=== PATIENT | female | born 1960 | race Caucasian/White ===

== ENCOUNTER 2018-03-14 20:22 | Emergency (ER) | payer OTHER ==
[~2018-03-14] VITALS: Ht 154.9 cm; Wt 63.8 kg
[~2018-03-14 20:22] MED LIST: ATOR-22 PO; OMEP40CA PO; RXC5 PO
[2018-03-14 20:24] VITALS: TEMP 36.6; Ht 154.9 cm; Wt 63.8 kg
[2018-03-14] MEDS ORDERED: DIAZEPAM 5MG TAB PO STA (21:00)
[2018-03-14] MEDS ORDERED: KETOROLAC TROMETHAMINE 60 MG/2 ML VIAL IM STA (21:00)
--- NOTE | 2018-03-14 21:55 | EMERGENCY ROOM VISIT NOTE ---
ED Visit Note First contact with patient: 20:51 CHIEF COMPLAINT: Low back pain HISTORY OF PRESENT ILLNESS: This 57-year-old female patient presents to the emergency department by private vehicle with her daughter complaining of pain in the low back which began approximately 6 hours ago. Patient states that she was doing some housework and turned to do something and felt a twinge in her lower back, states "it felt like I tweaked something." The pain has gradually become worse and is now constant, worse with movement and bending at the waist. The patient notes the pain as aching and a 8/10. The patient has taken Tylenol with codeine with minimal relief of the pain. The patient denies any loss of control of their bowel or bladder functions. There has been no leg numbness or weakness, and no change in sensation. No nausea or vomiting or abdominal pain. No chest pain or shortness of breath. The patient has had prior surgery about a year ago, reports that she had a cage at L3-L5 by Dr. Pina 1 year ago. She denies any chronic back issues since her surgery. She denies any falls or direct trauma to the back. No dysuria or increased urinary frequency. REVIEW OF SYSTEMS: A complete 10 point review of systems was reviewed with the patient with pertinent positives and negatives as per history of present illness. All else were negative. ALLERGIES: Reviewed in chart, see below. MEDICATIONS: Reviewed in chart, see below. PMH: Hyperlipidemia, GERD. Lumbar spine surgery. SOCIAL HISTORY: Lives at home. She is a current everyday smoker. PHYSICAL EXAM: VITALS: Vitals are noted on the nurse's note and reviewed by myself. Vital signs stable. GENERAL: Pleasant and cooperative, in no acute distress, but does appear to be uncomfortable and in pain. Non-diaphoretic, well-developed well-nourished. SKIN: The skin was without rashes, erythema, edema, or bruising. Capillary refill less than 2 seconds. NECK: Supple without nuchal rigidity. No cervical spine tenderness. No paraspinous muscle tenderness. HEART: Regular rate and rhythm without murmurs gallops or rubs. LUNGS: Clear to auscultation bilaterally without wheezes, rales or rhonchi. ABDOMEN: Positive bowel sounds x 4. Normal tympanic percussion. Soft, nontender, without masses or organomegaly. Zamora sign negative. MUSCULOSKELETAL: No muscle atrophy, erythema, or edema noted of the back. There is no tenderness over the lumbar spinous processes. There is tenderness over the paraspinous muscles of the lumbar spine bilaterally. There is no tenderness over the thoracic spine or paraspinous muscles. There are bilateral lumbar muscle spasms present. The patient is slow to move around with maximum tenderness with bending at the waist. Negative straight leg raise test bilaterally. NEURO: Patient was alert and oriented to person place and time. Normal sensation to light and sharp touch. Deep tendon reflexes 2+ in the lower extremities. Dorsalis pedis pulse 2+ bilaterally. Strength 5/5 and equal in the bilateral lower extremities. IMAGING: CT OF THE LUMBAR SPINE WITHOUT CONTRAST CLINICAL HISTORY: Back pain. COMPARISON STUDY: Lumbar spine fluoroscopic images November 12, 2015. TECHNIQUE: Axial images of the lumbar spine were obtained without IV contrast. Sagittal and coronal reconstructions were viewed. FINDINGS: The patient is status post L4-L5 discectomy with interbody spacer placement. There is a posterior decompression with bilateral pedicle screws at the L4 and L5 levels. Hardware is intact. Lateral bone graft material is noted. No acute lumbar spine fracture is identified. Central canal and neural foramen are suboptimally assessed by CT however, there is probable disc bulge at the L3-L4 level with possible central canal stenosis which is difficult to assess given streak artifact.. There is irregularity of the inferior endplate of L4 and superior endplate of L5 with minimal bony bridging. Paravertebral soft tissues are unremarkable. IMPRESSION: 1. No acute lumbar spine fracture or subluxation. 2. Status post L4-L5 discectomy with interbody spacer placement with minimal bony bridging at this level with irregularity inferior endplate of L4 and superior endplate of L5. Bilateral pedicle screw fusion at this level. Hardware intact. 3. Suboptimal evaluation of central canal given artifact but suspected disc bulge with possible central canal stenosis at L3-L4. EMERGENCY DEPARTMENT COURSE: I examined the patient. Differential diagnosis includes muscle spasm, lumbar muscle sprain/strain, lumbar radiculopathy, sciatica, herniated or bulging disc, surgical hardware malfunction, vertebral fracture, subluxation, cauda equina syndrome, among others. Patient is alert and oriented, in no acute distress but does appear uncomfortable and in pain, resting on the stretcher. Her neurologic exam is intact with no focal deficits. No red flags on exam or history to suggest cauda equina at this time. She was given IM Toradol and p.o. Valium to treat her symptoms. CT of the lumbar spine was ordered to evaluate her back pain, noting that her surgical hardware is intact, and she most likely has a disc bulge at the level of L3-L4. Patient was reassessed after medication, she states that her pain is greatly improved and she appears much more comfortable. Patient was given an additional dose of IM Decadron, and Rx for Medrol Dosepak and Valium were sent to the pharmacy. Patient was educated regarding these medications. Patient was updated on all results, was encouraged to follow closely with her PCP and her spine surgeon, and was recommended to seek physical therapy for her back pain. She was also given strict return precautions should her symptoms worsen, she verbalized understanding. Patient was discharged home in stable condition and ambulatory. Current/Historical Medications Scheduled Atorvastatin (Lipitor), 1 TAB PO HS Diazepam (Valium), 5 MG PO TID Methylprednisolone (Medrol Dosepak), 0 PO DAILY Omeprazole (Prilosec), 40 MG PO QAM Scheduled PRN Oxycodone HCl (Oxycodone HCl), 5-10 MG PO Q4H PRN for Pain Allergies Coded Allergies: Fish (Verified Allergy, Severe, swelling of mouth/tongue, 11/12/15) Peanut (Verified Allergy, Unknown, SWELLING OF TONGUE/LIPS, 11/12/15) Morphine (Verified Adverse Reaction, Unknown, N/V, 11/12/15) Penicillins (Verified Adverse Reaction, Unknown, N/V, 11/12/15) Vital Signs Date Time Temp Pulse Resp B/P (MAP) Pulse Ox O2 Delivery O2 Flow Rate FiO2 03/14/18 22:40 84 17 156/83 96 Room Air 03/14/18 20:24 36.6 84 18 151/75 97 Room Air Medications Administered Medications (Trade) Dose Ordered Sig/Elijah Route Start Time Stop Time Status Last Admin Dose Admin Ketorolac Tromethamine (Toradol Inj) 60 mg NOW STAT IM 03/14/18 21:00 03/14/18 21:02 DC 03/14/18 21:44 60 MG Diazepam (Valium Tab) 10 mg NOW STAT PO 03/14/18 21:00 03/14/18 21:03 DC 03/14/18 21:44 10 MG Dexamethasone Sodium Phosphate (Decadron Inj) 10 mg STK-MED ONCE .ROUTE 03/14/18 22:40 03/14/18 22:41 DC 03/14/18 22:40 10 MG Departure Information Impression Primary Impression: Bulging lumbar disc Additional Impression: Low back pain Dispostion Home / Self-Care Condition GOOD Prescriptions Diazepam (Valium) 5 Mg Tab 5 MG PO TID for muss, #12 TAB Prov: Uma Holloway., [employer] 03/14/18 Methylprednisolone (MEDROL DOSEPAK) 4 Mg Matt 0 PO DAILY, #1 PKT Prov: Uma Holloway., [employer] 03/14/18 Referrals Adryan Britt PA-C (PCP) Patient Instructions ED Low Back Pain Injury, My [facility] Additional Instructions You have been evaluated and treated in the emergency department today for your low back pain/injury. CT imaging shows a bulging disc at the level of L3-L4 which could be the cause of your pain. Your surgical hardware appears to be intact. You have been prescribed Medrol Dosepak (steroid taper) to help treat the pain from your bulging disc. Take as directed. Do not take any other NSAIDs such as aspirin, ibuprofen, Advil or Aleve while you are taking the steroids, as this can increase your risk for stomach irritation and bleeding. Take it easy for the next few days, no strenuous activity, heavy lifting, or bending/twisting motions, to allow your back to rest. Alternate heat and ice for comfort. After heat, you may do gentle stretching and massage to the low back. You may take Tylenol 650 mg every 4-6 hours as needed for pain. Do not take more than 3000 mg in 24 hours. Valium muscle relaxer as prescribed, as needed for muscle tightness and spasms. This may make you drowsy. Do not drive or drink alcohol while taking. Follow up with your primary care provider in the next few days for further management. Call tomorrow for an appointment. You may benefit from physical therapy. You should also follow-up with Dr. Pina, your spine surgeon. Call for an appointment. Please return to the ER if any problems with bowel or bladder function, numbness in your groin, high fevers, severe worsening back pain, loss of feeling /movement of legs, or any other concerns. Work Instructions Return To Work: 3 days Problem Qualifiers Additional Impression: Low back pain Chronicity: acute Back pain laterality: bilateral Sciatica presence: without sciatica Qualified Codes: M54.5 - Low back pain
--- NOTE | 2018-03-14 22:11 | DIAGNOSTIC IMAGING REPORT ---
CT OF THE LUMBAR SPINE WITHOUT CONTRAST CLINICAL HISTORY: Back pain. COMPARISON STUDY: Lumbar spine fluoroscopic images November 12, 2015. TECHNIQUE: Axial images of the lumbar spine were obtained without IV contrast. Sagittal and coronal reconstructions were viewed. FINDINGS: The patient is status post L4-L5 discectomy with interbody spacer placement. There is a posterior decompression with bilateral pedicle screws at the L4 and L5 levels. Hardware is intact. Lateral bone graft material is noted. No acute lumbar spine fracture is identified. Central canal and neural foramen are suboptimally assessed by CT however, there is probable disc bulge at the L3-L4 level with possible central canal stenosis which is difficult to assess given streak artifact.. There is irregularity of the inferior endplate of L4 and superior endplate of L5 with minimal bony bridging. Paravertebral soft tissues are unremarkable. IMPRESSION: 1. No acute lumbar spine fracture or subluxation. 2. Status post L4-L5 discectomy with interbody spacer placement with minimal bony bridging at this level with irregularity inferior endplate of L4 and superior endplate of L5. Bilateral pedicle screw fusion at this level. Hardware intact. 3. Suboptimal evaluation of central canal given artifact but suspected disc bulge with possible central canal stenosis at L3-L4. Electronically signed by: Obed Farooq M.D. 03/14/2018 10:10 PM Dictated Date/Time: 03/14/2018 10:02 PM
[2018-03-14] MEDS ORDERED: DEXAMETHASONE SOD INJ 4 MG/ML VIAL IM STA (22:19)
[2018-03-14] MEDS ORDERED: METH4PAK PO (22:24)
[2018-03-14 22:40] VITALS: BP 156/83; PULSE 84; O2SAT 96
[2018-03-14] MEDS ORDERED: DEXAMETHASONE SOD INJ 10 MG/ML VIAL ONE (22:40)
[2018-03-14] MEDS ORDERED: DIAZ-165 PO (22:41)
== END 2018-03-14 23:17 | disposition home or self-care (01) ==
LOC: C.EDB 20:22 → C.EDD 23:17
DX: M51.26 Other intervertebral disc displacement, lumbar region (principal); F17.200 Nicotine dependence, unspecified, uncomplicated; E78.5 Hyperlipidemia, unspecified; K21.9 Gastro-esophageal reflux disease without esophagitis; Z91.010 Allergy to peanuts; Z91.013 Allergy to seafood; Z88.5 Allergy status to narcotic agent; Z88.0 Allergy status to penicillin; Z79.899 Other long term (current) drug therapy